=== PATIENT | female | born 1955 | race Two or more races ===

== ENCOUNTER 2016-07-31 17:27 | Emergency (ER) | payer OTHER ==
[~2016-07-31] VITALS: Ht 165.1 cm; Wt 77.1 kg
[~2016-07-31 17:27] MED LIST: AMOXICILLI250 MG/5 M ORAL; IBUPROFEN600 M1 PO; NKM; NORCO 5-325 TA1 EACH ORAL
[2016-07-31 18:10] VITALS: BP 116/67
[2016-07-31] MEDS ORDERED: LOPERAMIDE2 M1 PO (18:19)
[2016-07-31] MEDS ORDERED: Dicyclomine HCl 10mg/5ml oral soln ORAL ONE (18:30)
[2016-07-31 18:44] VITALS: BP 116/67
--- NOTE | 2016-08-01 00:40 | Emergency Room Report ---
History of Present Illness General Chief Complaint: Abdominal Pain Source: Family Member Present Illness HPI Patient is a 61-year-old female who presented after having increased vomiting and diarrhea. Patient gradual onset of symptoms. Patient had no episodes of bloody emesis or bloody stools. Patient denied any locations of pain currently patient reported having intermittent abdominal cramping. She had not been having any fever.The patient denied feeling dizzy or lightheaded. 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 Allergies: Coded Allergies: No Known Allergies (Unverified , 10/16/13) Patient History Past Medical History: see triage record Reviewed Nursing Documentation: PMH: Agreed, PSxH: Agreed Nursing Documentation-PMH Past Medical History: No Stated History Review of Systems All Other Systems: negative except mentioned in HPI Physical Exam Vital Signs Date Time Temp Pulse Resp B/P Pulse Ox O2 Delivery O2 Flow Rate FiO2 07/31/16 17:36 98.1 62 16 116/67 98 Room Air Sp02 EP Interpretation: reviewed, normal General Appearance: normal inspection, well appearing, no apparent distress, alert, GCS 15, non-toxic Head: atraumatic ENT: normal ENT inspection, hearing grossly normal, normal voice Neck: normal inspection, full range of motion, supple, no bony tend Respiratory: normal inspection, lungs clear, normal breath sounds, no respiratory distress, no retraction, no wheezing Cardiovascular #1: regular rate, rhythm, no edema Gastrointestinal: normal inspection, normal bowel sounds, non tender, soft, no guarding, no hernia Genitourinary: no CVA tenderness Musculoskeletal: normal inspection, back normal, normal range of motion Neurologic: normal inspection, alert, responsive, speech normal Psychiatric: normal inspection, judgement/insight normal, mood/affect normal Skin: normal inspection, normal color, no rash Medical Decision Making Diagnostic Impression: Primary Impression: Viral gastroenteritis ER Course Patient presented for abdominal pain. Differential diagnoses included ischemic bowel, appendicitis, perforated viscus, abdominal aortic aneurysm, inferior myocardial infarction, viral gastroenteritis Patient's benign exam and does not appear to require any further imaging or laboratory testing at this time. Patient appears well-hydrated. The patient was given prescription for Imodium. She is advised to remain off of work until noncontagious. The patient is advised to follow up with primary care doctor in 1-2 days. Patient is advised to return if any worsening condition or if any changes in status that are concerning. Last Vital Signs Date Time Temp Pulse Resp B/P Pulse Ox O2 Delivery O2 Flow Rate FiO2 07/31/16 18:44 98.1 65 16 116/67 98 Room Air Status: improved Disposition: HOME, SELF-CARE Condition: Stable Scripts Loperamide Hcl (LOPERAMIDE) 2 Mg Tablet 2 MG PO Q12HR for Diarrhea, #20 TAB Prov: Gino Palomares 07/31/16 Departure Forms: Return to Work Return to Work in (Days): 3 Patient Instructions: Viral Gastroenteritis, Adult, Abdominal Pain, Adult Gino Palomares Aug 01, 2016 00:40
== END 2016-07-31 18:45 | disposition home or self-care (01) ==
LOC: EMR 18:03
DX: A08.4 Viral intestinal infection, unspecified (principal)
CPT/HCPCS: 99283